=== PATIENT | female | born 1975 | race Native Hawaiian/Other Pacific Islander ===

== ENCOUNTER 2022-11-03 23:12 | Emergency (ER) | payer OTHER ==
[~2022-11-03] VITALS: Ht 172.7 cm; Wt 106.6 kg
[~2022-11-03 23:12] MED LIST: CYCL10TA35 PO; GABA300C2 PO
[2022-11-03 23:17] VITALS: TEMP 98.1
[2022-11-04 01:47] LABS: PARTIAL THROMBOPLASTIN TIME 29.8 SECONDS (23.9-36.7)
[2022-11-04 01:51] LABS: POTASSIUM 3.9 mmol/L (3.6-5.2); SODIUM 135 mmol/L (136-145)
[2022-11-04 02:00] LABS: PLATELET COUNT 303 K/uL (152-353)
[2022-11-04 03:15] VITALS: BP 126/78
== END 2022-11-04 03:15 | disposition home or self-care (01) ==
LOC: ED 23:12
PROVIDERS: Emergency Medicine
DX: K29.70 Gastritis, unspecified, without bleeding (principal)
CPT/HCPCS: 36415; 80053; 81002; 83690; 84484; 85027; 85610; 85730; 93005; 96361; 96374; 96375; 99284; J1170; J2550; J3490